=== PATIENT | female | born 1960 | race Two or more races ===

== ENCOUNTER 2017-02-27 03:19 | Emergency (ER) | payer MEDICAID ==
[~2017-02-27] VITALS: Ht 160 cm; Wt 61.1 kg
[2017-02-27 03:20] VITALS: BP 137/84
[2017-02-27] MEDS ORDERED: LIDOCAINE 1%, 20ML SQ ONE (03:30)
== END 2017-02-27 04:01 | disposition home or self-care (01) ==
LOC: ED 03:45
DX: L03.317 Cellulitis of buttock (principal); I10 Essential (primary) hypertension; E11.9 Type 2 diabetes mellitus without complications
CPT/HCPCS: 99283